=== PATIENT | female | born 1980 | race Two or more races ===

== ENCOUNTER → 2018-08-08 | Outpatient (CLI) | payer OTHER | END | disposition home or self-care (01) | LOC: LAB 09:45 | PROVIDERS: ATTEND Preventive Medicine Preventive Medicine/Occupational Environmental Medicine | DX: Z02.1 Encounter for pre-employment examination (principal) | CPT/HCPCS: 86735; 86762; 86765 ==

== ENCOUNTER 2021-07-29 13:33 | Emergency (ER) | payer BC, OTHER ==
[~2021-07-29] VITALS: Ht 157.5 cm; Wt 73.5 kg
[2021-07-29 13:34] VITALS: BP 140/92
[2021-07-29] MEDS ORDERED: SULF400T11 PO (14:49)
[2021-07-29] MEDS ORDERED: PRED20TA2 PO (14:49)
== END 2021-07-29 14:53 | disposition home or self-care (01) ==
LOC: ER 13:33
DX: J01.90 Acute sinusitis, unspecified (principal); Z88.0 Allergy status to penicillin

== ENCOUNTER 2022-10-12 16:28 | Emergency (ER) | payer BC ==
[~2022-10-12] VITALS: Ht 157.5 cm; Wt 68.3 kg
[~2022-10-12 16:28] MED LIST: PRED20TA2 PO; SULF400T11 PO
[2022-10-12 16:43] VITALS: BP 147/102; PULSE 93; RESP 16; O2SAT 99
== END 2022-10-12 21:57 | disposition left against medical advice (07) ==
LOC: ER 16:28
DX: G43.909 Migraine, unspecified, not intractable, without status migrainosus (principal); Z53.21 Procedure and treatment not carried out due to patient leaving prior to being seen by health care provider